=== PATIENT | male | born 1990 | race Caucasian/White ===

== ENCOUNTER 2017-02-03 10:19 | Emergency (ER) | payer SELFPAY ==
[~2017-02-03] VITALS: Ht 180.3 cm; Wt 77.1 kg
[~2017-02-03 10:19] MED LIST: CLINDAMYCIN HC150 MG ORAL; IBUPROFEN600 MG ORAL; KEFLEX500 MG ORAL; NKM
[2017-02-03 10:24] VITALS: BP 115/85
[2017-02-03 12:18] VITALS: BP 114/74
--- NOTE | 2017-02-03 13:26 | Emergency Room Report ---
History of Present Illness General Chief Complaint: Overdose Source: Patient, EMS Present Illness HPI Patient was found in his car passed out with a needle in his left arm Patient was given Narcan by paramedics and responded quickly becoming more awake and alert patient reports that he has gone through multiple rehabilitation facilities At this time did not have the money to go to another facility Denies any headache denies any chest pain Patient requesting sandwich Denies any suicidal or homicidal thoughts Denies any back or flank pain Allergies: Coded Allergies: No Known Allergies (Unverified , 03/13/16) Patient History Past Medical History: see triage record Pertinent Family History: none Reviewed Nursing Documentation: PMH: Agreed, PSxH: Agreed Nursing Documentation-PMH Past Medical History: No Stated History Review of Systems All Other Systems: negative except mentioned in HPI Physical Exam Vital Signs Date Time Temp Pulse Resp B/P Pulse Ox O2 Delivery O2 Flow Rate FiO2 02/03/17 10:09 97.3 64 18 142/88 98 Room Air 02/03/17 10:24 99 Sp02 EP Interpretation: reviewed, normal General Appearance: no apparent distress Head: normocephalic, atraumatic Eyes: bilateral eye EOMI, bilateral eye PERRL ENT: hearing grossly normal, normal pharynx, TMs + canals normal, uvula midline Neck: full range of motion, supple, no meningismus, no bony tend Respiratory: lungs clear, normal breath sounds, no rhonchi, no respiratory distress, no retraction, no accessory muscle use Cardiovascular #1: normal peripheral pulses, regular rate, rhythm, no edema, no gallop, no JVD, no murmur Gastrointestinal: normal bowel sounds, non tender, soft, no mass, no organomegaly, non-distended, no guarding, no hernia, no pulsatile mass, no rebound Genitourinary: no CVA tenderness Musculoskeletal: normal inspection Neurologic: oriented x3, responsive, 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, motor strength/ tone normal, sensory intact Psychiatric: mood/affect normal Skin: other - Multiple areas of skin injection small hematomas, no obvious abscess Lymphatic: normal inspection, no adenopathy Medical Decision Making Diagnostic Impression: Primary Impression: Drug overdose ER Course Patient continues to remain awake alert and appropriate Patient is upset that he was getting set up for outpatient therapy however he was brought to the emergency room by paramedics we did attempt to describe to him that he was brought in by ambulance and that we did not have anything to do with this Patient was also found with a needle in his arm with consideration of possible overdose Social work consultation was made patient was seen by them and released at this time is medically clear for continued outpatient followup Rhythm Strip Diag. Results EP Interpretation: yes Rate: 78 Rhythm: NSR, no PVC's, no ectopy Last Vital Signs Date Time Temp Pulse Resp B/P Pulse Ox O2 Delivery O2 Flow Rate FiO2 02/03/17 12:18 97.7 80 17 114/74 99 Room Air 02/03/17 10:24 99 Status: improved Disposition: HOME, SELF-CARE Condition: Improved Referrals: NOT CHOSEN IPA/MD,REFERRING (PCP) Patient Instructions: Finding Treatment for Addiction, Opioid Withdrawal Additional Instructions: Patient is provided with the discharge instructions notified to follow up with primary doctor in the next 2-3 days otherwise return to the er with any worsening symptoms. Please note that this report is being documented using DRAGON technology. This can lead to erroneous entry secondary to incorrect interpretation by the dictating instrument. TATIANA SHANKS D.O. Feb 03, 2017 13:26
[2017-02-03 13:29] VITALS: BP 121/86
== END 2017-02-03 19:58 | disposition home or self-care (01) ==
LOC: EDBD 10:19 → EMR 11:17
DX: T65.91XA Toxic effect of unspecified substance, accidental (unintentional), initial encounter (principal); X58.XXXA Exposure to other specified factors, initial encounter; Y93.9 Activity, unspecified; Y92.810 Car as the place of occurrence of the external cause
CPT/HCPCS: 99283